=== PATIENT | male | born 1945 | race Caucasian/White ===

== ENCOUNTER 2018-03-08 11:37 | Emergency (ER) | payer MEDICARE, MEDICAID ==
[~2018-03-08] VITALS: Ht 180.3 cm; Wt 66.0 kg
[~2018-03-08 11:37] MED LIST: GABA-530 PO; GABA-532 PO; HYDR-565 PO; LISI-604 PO; ONDA4TAB6 PO; WARF3TAB PO
[2018-03-08 12:07] VITALS: BP 142/91
[2018-03-08 12:51] LABS: BASOPHILS % (AUTO) 0.6 % (0-1); EOSINOPHILS # (AUTO) 0.1 X10'3 (0-0.9); EOSINOPHILS % (AUTO) 1.7 % (0-6); HEMATOCRIT 46.1 % (42.0-52.0); HEMOGLOBIN 15.5 g/dl (14.0-17.9); LYMPHOCYTES # (AUTO) 1.9 X10'3 (1.1-4.8); MEAN CORPUSCULAR HEMOGLOBIN 29.7 PG (27.0-31.0); MEAN CORPUSCULAR HGB CONC 33.6 % (33.0-36.5); MEAN CORPUSCULAR VOLUME 88.6 FL (78-98); MEAN PLATELET VOLUME 7.6 FL (7.4-10.4); MONOCYTES # (AUTO) 0.5 X10'3 (0-0.9); MONOCYTES % (AUTO) 7.8 % (2-12); NEUTROPHILS # (AUTO) 3.9 X10'3 (1.8-7.7); NEUTROPHILS % (AUTO) 59.9 % (42-75); PLATELET COUNT 247 X10'3 (140-440); RED CELL DISTRIBUTION WIDTH 14.5 % (11.5-14.5); WHITE BLOOD COUNT 6.5 X10'3 (4.5-11.0)
[2018-03-08 13:10] LABS: ALANINE AMINOTRANSFERASE 22 U/L (12-78); ALBUMIN 3.7 G/DL (3.4-5.0); ALBUMIN/GLOBULIN RATIO 0.8 (1.1-1.5); ALKALINE PHOSPHATASE 94 IU/L (46-116); ANION GAP 9 (8-16); ASPARTATE AMINO TRANSFERASE 23 U/L (10-37); BILIRUBIN,TOTAL 0.5 MG/DL (0.1-1.0); BLOOD UREA NITROGEN 10 MG/DL (7-18); BUN/CREATININE RATIO 9.4 (5.4-32.0); CALCIUM 9.2 MG/DL (8.5-10.1); CHLORIDE 105 MMOL/L (99-107); CREATININE 1.06 MG/DL (0.60-1.10); GLUCOSE 97 MG/DL (70-104); MAGNESIUM 2.1 MG/DL (1.5-2.4); POTASSIUM 4.2 MMOL/L (3.5-5.1); SODIUM 142 MMOL/L (135-145); TOTAL CARBON DIOXIDE 27.9 MMOL/L (24-32); TOTAL PROTEIN 8.1 G/DL (6.4-8.2); eGFR 69 ML/MIN
[2018-03-08] MEDS ORDERED: IBUP-1985 PO (13:21)
== END 2018-03-08 13:33 | disposition home or self-care (01) ==
LOC: ER 11:37
DX: M79.605 Pain in left leg (principal); M79.604 Pain in right leg; I48.91 Unspecified atrial fibrillation; I10 Essential (primary) hypertension; Z86.718 Personal history of other venous thrombosis and embolism; Z88.0 Allergy status to penicillin; Z56.0 Unemployment, unspecified; Z79.899 Other long term (current) drug therapy
CPT/HCPCS: 36415; 80053; 83735; 85025; 99284

== ENCOUNTER → 2018-05-22 | Emergency (ER) | payer MEDICARE, MEDICAID ==
[~2018-05-22] VITALS: Ht 180.3 cm; Wt 75.0 kg
[~2018-05-22] MED LIST changes: +IBUP-1985 PO
[2018-05-22 12:24] LABS: BASOPHILS % (AUTO) 0.8 % (0-1); EOSINOPHILS # (AUTO) 0.1 X10'3 (0-0.9); EOSINOPHILS % (AUTO) 1.3 % (0-6); HEMATOCRIT 45.4 % (42.0-52.0); HEMOGLOBIN 15.4 g/dl (14.0-17.9); LYMPHOCYTES # (AUTO) 1.7 X10'3 (1.1-4.8); LYMPHOCYTES % (AUTO) 31.2 % (21-51); MEAN CORPUSCULAR HGB CONC 33.8 % (33.0-36.5); MEAN CORPUSCULAR VOLUME 88.9 FL (78-98); MEAN PLATELET VOLUME 8.7 FL (7.4-10.4); MONOCYTES # (AUTO) 0.5 X10'3 (0-0.9); MONOCYTES % (AUTO) 8.3 % (2-12); NEUTROPHILS # (AUTO) 3.3 X10'3 (1.8-7.7); NEUTROPHILS % (AUTO) 58.4 % (42-75); PLATELET COUNT 198 X10'3 (140-440); RED BLOOD COUNT 5.11 X10'6 (4.70-6.10); RED CELL DISTRIBUTION WIDTH 14.2 % (11.5-14.5); WHITE BLOOD COUNT 5.6 X10'3 (4.5-11.0)
[2018-05-22 12:27] LABS: INR 1.1 INR; PROTHROMBIN TIME 11.3 SECONDS (9.0-12.0)
[2018-05-22 12:35] LABS: ALANINE AMINOTRANSFERASE 14 U/L (12-78); ALBUMIN 3.4 G/DL (3.4-5.0); ALBUMIN/GLOBULIN RATIO 0.9 (1.1-1.5); ALKALINE PHOSPHATASE 76 IU/L (46-116); ANION GAP 9 (8-16); ASPARTATE AMINO TRANSFERASE 15 U/L (10-37); BILIRUBIN,TOTAL 0.6 MG/DL (0.1-1.0); BLOOD UREA NITROGEN 10 MG/DL (7-18); BUN/CREATININE RATIO 7.8 (5.4-32.0); CALCIUM 9.7 MG/DL (8.5-10.1); CHLORIDE 107 MMOL/L (99-107); CREATININE 1.29 MG/DL (0.60-1.10); GLUCOSE 98 MG/DL (70-104); SODIUM 146 MMOL/L (135-145); TOTAL CARBON DIOXIDE 30.4 MMOL/L (24-32); eGFR 55 ML/MIN
[2018-05-22 13:22] LABS: CLARITY,URINE SLIGHTLY CLOUDY (Clear); GLUCOSE, URINE NEGATIVE (Neg); KETONES,URINE TRACE mg/dl (Neg); LEUKOCYTE ESTERASE ,URINE NEGATIVE (Neg); NITRITES, URINE NEGATIVE (Neg); OCCULT BLOOD,URINE NEGATIVE (Neg); PROTEIN,URINE TRACE mg/dl (Neg)
[2018-05-22 13:23] LABS: UA COLLECTION TYPE URINAL
[2018-05-22 13:24] LABS: COLOR,URINE DARK YELLOW (Yellow)
[2018-05-22 13:29] LABS: BACTERIA,URINE FEW /HPF (Neg); MUCUS STRANDS MANY /LPF (Neg); RBC,URINE 0-2 /HPF (0-2); SQUAMOUS EPITHELIAL CELL,UR FEW /LPF (FEW); TRANSITIONAL EPI CELLS,URINE FEW /HPF
[2018-05-22 14:18] VITALS: BP 164/60
== END | disposition home or self-care (01) ==
LOC: ER 11:48
DX: R11.2 Nausea with vomiting, unspecified (principal); R53.1 Weakness; I48.91 Unspecified atrial fibrillation; I10 Essential (primary) hypertension; Z86.718 Personal history of other venous thrombosis and embolism; Z56.0 Unemployment, unspecified; Z88.0 Allergy status to penicillin; Z79.01 Long term (current) use of anticoagulants; Z79.899 Other long term (current) drug therapy
CPT/HCPCS: 36415; 71045; 80053; 81001; 83735; 83880; 84484; 85025; 85610; 87088; 93005; 99285

== ENCOUNTER 2018-07-27 19:04 | Emergency (ER) | payer MEDICARE, MEDICAID ==
[~2018-07-27] VITALS: Ht 180.3 cm; Wt 61.6 kg
[2018-07-27] MEDS ORDERED: ondansetron/PF 4mg/2ml inj IV ONE (21:10)
[2018-07-27] MEDS ORDERED: normal saline 1000ML IV soln IVB ONE (21:10)
[2018-07-27 21:28] VITALS: BP 146/85
[2018-07-27 21:41] LABS: BASOPHILS # (AUTO) 0.1 X10'3 (0-0.2); BASOPHILS % (AUTO) 0.8 % (0-1); EOSINOPHILS # (AUTO) 0.3 X10'3 (0-0.9); EOSINOPHILS % (AUTO) 4.3 % (0-6); HEMATOCRIT 42.8 % (42.0-52.0); HEMOGLOBIN 14.3 g/dl (14.0-17.9); LYMPHOCYTES # (AUTO) 2.6 X10'3 (1.1-4.8); LYMPHOCYTES % (AUTO) 40.3 % (21-51); MEAN CORPUSCULAR HEMOGLOBIN 29.4 PG (27.0-31.0); MEAN CORPUSCULAR HGB CONC 33.3 % (33.0-36.5); MEAN CORPUSCULAR VOLUME 88.4 FL (78-98); MEAN PLATELET VOLUME 7.7 FL (7.4-10.4); MONOCYTES # (AUTO) 0.7 X10'3 (0-0.9); MONOCYTES % (AUTO) 10.5 % (2-12); NEUTROPHILS # (AUTO) 2.9 X10'3 (1.8-7.7); NEUTROPHILS % (AUTO) 44.1 % (42-75); PLATELET COUNT 194 X10'3 (140-440); RED BLOOD COUNT 4.85 X10'6 (4.70-6.10); RED CELL DISTRIBUTION WIDTH 14.8 % (11.5-14.5); WHITE BLOOD COUNT 6.5 X10'3 (4.5-11.0)
[2018-07-27 21:56] LABS: ALANINE AMINOTRANSFERASE 15 U/L (12-78); ALBUMIN 3.1 G/DL (3.4-5.0); ALBUMIN/GLOBULIN RATIO 0.9 (1.1-1.5); ALKALINE PHOSPHATASE 75 IU/L (46-116); ANION GAP 7 (8-16); ASPARTATE AMINO TRANSFERASE 23 U/L (10-37); BILIRUBIN,TOTAL 0.4 MG/DL (0.1-1.0); BLOOD UREA NITROGEN 7 MG/DL (7-18); BUN/CREATININE RATIO 7.4 (5.4-32.0); CALCIUM 8.8 MG/DL (8.5-10.1); CHLORIDE 104 MMOL/L (99-107); CREATININE 0.95 MG/DL (0.60-1.10); GLUCOSE 88 MG/DL (70-104); LIPASE 170 U/L (73-393); POTASSIUM 3.6 MMOL/L (3.5-5.1); SODIUM 141 MMOL/L (135-145); TOTAL CARBON DIOXIDE 30.4 MMOL/L (24-32); TOTAL PROTEIN 6.6 G/DL (6.4-8.2); eGFR 78 ML/MIN
[2018-07-27] MEDS ORDERED: ONDA8TAB9 PO (22:49)
[2018-07-27 22:52] LABS: CLARITY,URINE CLEAR (Clear); COLOR,URINE YELLOW (Yellow); GLUCOSE, URINE NEGATIVE (Neg); KETONES,URINE NEGATIVE (Neg); LEUKOCYTE ESTERASE ,URINE NEGATIVE (Neg); NITRITES, URINE NEGATIVE (Neg); OCCULT BLOOD,URINE NEGATIVE (Neg); PH,URINE 6.5 (4.8-8.0); PROTEIN,URINE NEGATIVE (Neg); UROBILINOGEN,URINE 0.2 E.U/dL (0.2-1.0)
[2018-07-27 23:01] LABS: UA COLLECTION TYPE VOIDED
== END 2018-07-27 23:03 | disposition home or self-care (01) ==
LOC: ER 19:04
DX: R11.2 Nausea with vomiting, unspecified (principal); I48.91 Unspecified atrial fibrillation; I10 Essential (primary) hypertension; F17.200 Nicotine dependence, unspecified, uncomplicated; Z86.718 Personal history of other venous thrombosis and embolism; Z88.0 Allergy status to penicillin; Z79.01 Long term (current) use of anticoagulants
CPT/HCPCS: 36415; 80053; 81003; 83690; 85025; 96361; 96374; 99284; J2405; J7030

== ENCOUNTER 2018-07-29 18:02 | Emergency (ER) | payer MEDICARE, MEDICAID ==
[~2018-07-29] VITALS: Ht 180.3 cm; Wt 70.0 kg
[~2018-07-29 18:02] MED LIST changes: +ONDA8TAB9 PO
[2018-07-29 18:28] LABS: BASOPHILS % (AUTO) 0.6 % (0-1); EOSINOPHILS # (AUTO) 0.2 X10'3 (0-0.9); HEMATOCRIT 40.6 % (42.0-52.0); HEMOGLOBIN 13.5 g/dl (14.0-17.9); LYMPHOCYTES # (AUTO) 2.4 X10'3 (1.1-4.8); LYMPHOCYTES % (AUTO) 39.8 % (21-51); MEAN CORPUSCULAR HEMOGLOBIN 29.3 PG (27.0-31.0); MEAN CORPUSCULAR HGB CONC 33.3 % (33.0-36.5); MEAN PLATELET VOLUME 7.8 FL (7.4-10.4); MONOCYTES # (AUTO) 0.6 X10'3 (0-0.9); MONOCYTES % (AUTO) 9.2 % (2-12); NEUTROPHILS # (AUTO) 2.8 X10'3 (1.8-7.7); NEUTROPHILS % (AUTO) 46.4 % (42-75); PLATELET COUNT 189 X10'3 (140-440); RED BLOOD COUNT 4.61 X10'6 (4.70-6.10); RED CELL DISTRIBUTION WIDTH 14.8 % (11.5-14.5)
[2018-07-29 18:39] LABS: PROTHROMBIN TIME 10.7 SECONDS (9.0-12.0)
[2018-07-29 18:43] LABS: ALANINE AMINOTRANSFERASE 13 U/L (12-78); ALBUMIN 3.1 G/DL (3.4-5.0); ALBUMIN/GLOBULIN RATIO 0.9 (1.1-1.5); ALKALINE PHOSPHATASE 75 IU/L (46-116); ANION GAP 5 (8-16); ASPARTATE AMINO TRANSFERASE 20 U/L (10-37); BILIRUBIN,TOTAL 0.5 MG/DL (0.1-1.0); BLOOD UREA NITROGEN 7 MG/DL (7-18); BUN/CREATININE RATIO 7.8 (5.4-32.0); CALCIUM 8.5 MG/DL (8.5-10.1); CHLORIDE 105 MMOL/L (99-107); GLUCOSE 86 MG/DL (70-104); POTASSIUM 3.7 MMOL/L (3.5-5.1); SODIUM 140 MMOL/L (135-145); TOTAL PROTEIN 6.5 G/DL (6.4-8.2); eGFR 83 ML/MIN
[2018-07-29 18:53] LABS: CLARITY,URINE CLEAR (Clear); COLOR,URINE YELLOW (Yellow); GLUCOSE, URINE NEGATIVE (Neg); KETONES,URINE NEGATIVE (Neg); LEUKOCYTE ESTERASE ,URINE NEGATIVE (Neg); NITRITES, URINE NEGATIVE (Neg); OCCULT BLOOD,URINE NEGATIVE (Neg); PH,URINE 6.5 (4.8-8.0); PROTEIN,URINE NEGATIVE (Neg)
[2018-07-29 18:59] LABS: UA COLLECTION TYPE CLN CATCH MIDSTREAM
[2018-07-29 20:44] VITALS: BP 174/87
== END 2018-07-29 20:47 | disposition home or self-care (01) ==
LOC: ER 18:03
DX: R11.2 Nausea with vomiting, unspecified (principal); R42 Dizziness and giddiness; I10 Essential (primary) hypertension; I48.91 Unspecified atrial fibrillation; Z86.718 Personal history of other venous thrombosis and embolism; Z88.0 Allergy status to penicillin; Z79.01 Long term (current) use of anticoagulants; Z79.899 Other long term (current) drug therapy; Z56.0 Unemployment, unspecified
CPT/HCPCS: 36415; 80053; 81003; 85025; 85610; 93005; 99285

== ENCOUNTER 2018-08-31 18:21 | Emergency (ER) | payer MEDICARE, MEDICAID ==
[~2018-08-31] VITALS: Ht 180.3 cm; Wt 63.0 kg
[~2018-08-31 18:21] MED LIST changes: +HYDR-4353 PO; -HYDR-565 PO
[2018-08-31 20:23] VITALS: BP 165/89
== END 2018-08-31 20:15 | disposition home or self-care (01) ==
LOC: ER 18:21
DX: K59.00 Constipation, unspecified (principal); I10 Essential (primary) hypertension; I48.91 Unspecified atrial fibrillation; F17.200 Nicotine dependence, unspecified, uncomplicated; Z56.0 Unemployment, unspecified; Z88.0 Allergy status to penicillin; Z86.718 Personal history of other venous thrombosis and embolism; Z79.899 Other long term (current) drug therapy; Z79.01 Long term (current) use of anticoagulants
CPT/HCPCS: 99283

== ENCOUNTER 2018-09-12 16:54 | Emergency (ER) | payer MEDICARE, MEDICAID ==
[~2018-09-12] VITALS: Ht 180.3 cm; Wt 77.0 kg
[2018-09-12 16:57] VITALS: BP 171/81
== END 2018-09-12 17:34 | disposition home or self-care (01) ==
LOC: ER 16:55
DX: R11.2 Nausea with vomiting, unspecified (principal); I48.91 Unspecified atrial fibrillation; I10 Essential (primary) hypertension; Z56.0 Unemployment, unspecified; Z86.718 Personal history of other venous thrombosis and embolism; Z88.0 Allergy status to penicillin; Z79.899 Other long term (current) drug therapy; Z79.01 Long term (current) use of anticoagulants
CPT/HCPCS: 99283

== ENCOUNTER 2018-09-23 14:40 | Emergency (ER) | payer MEDICARE, MEDICAID ==
[~2018-09-23] VITALS: Ht 177.8 cm; Wt 62.7 kg
[2018-09-23 14:48] VITALS: BP 158/90
[2018-09-23 15:34] LABS: BASOPHILS % (AUTO) 0.5 % (0-1); EOSINOPHILS # (AUTO) 0.3 X10'3 (0-0.9); EOSINOPHILS % (AUTO) 4.2 % (0-6); HEMATOCRIT 44.2 % (42.0-52.0); HEMOGLOBIN 14.6 g/dl (14.0-17.9); LYMPHOCYTES # (AUTO) 2.5 X10'3 (1.1-4.8); LYMPHOCYTES % (AUTO) 34.8 % (21-51); MEAN CORPUSCULAR HEMOGLOBIN 29.2 PG (27.0-31.0); MEAN CORPUSCULAR VOLUME 88.8 FL (78-98); MEAN PLATELET VOLUME 7.9 FL (7.4-10.4); MONOCYTES # (AUTO) 0.6 X10'3 (0-0.9); MONOCYTES % (AUTO) 8.7 % (2-12); NEUTROPHILS # (AUTO) 3.7 X10'3 (1.8-7.7); NEUTROPHILS % (AUTO) 51.8 % (42-75); PLATELET COUNT 248 X10'3 (140-440); RED BLOOD COUNT 4.98 X10'6 (4.70-6.10); RED CELL DISTRIBUTION WIDTH 14.5 % (11.5-14.5); WHITE BLOOD COUNT 7.2 X10'3 (4.5-11.0)
[2018-09-23 15:41] LABS: ANION GAP 6 (8-16); BLOOD UREA NITROGEN 12 MG/DL (7-18); CHLORIDE 103 MMOL/L (99-107); GLUCOSE 92 MG/DL (70-104); POTASSIUM 3.6 MMOL/L (3.5-5.1); SODIUM 140 MMOL/L (135-145); TOTAL CARBON DIOXIDE 31.5 MMOL/L (24-32)
[2018-09-23 15:42] LABS: ALANINE AMINOTRANSFERASE 13 U/L (12-78); ALBUMIN 3.4 G/DL (3.4-5.0); ALBUMIN/GLOBULIN RATIO 0.9 (1.1-1.5); ALKALINE PHOSPHATASE 91 IU/L (46-116); ASPARTATE AMINO TRANSFERASE 14 U/L (10-37); BILIRUBIN,TOTAL 0.3 MG/DL (0.1-1.0); CALCIUM 9.7 MG/DL (8.5-10.1); TOTAL PROTEIN 7.2 G/DL (6.4-8.2); eGFR 73 ML/MIN
[2018-09-23 15:44] LABS: PROTHROMBIN TIME 10.2 SECONDS (9.0-12.0)
[2018-09-23 15:51] LABS: MAGNESIUM 1.9 MG/DL (1.5-2.4)
[2018-09-23] MEDS ORDERED: iohexol 350MG/ML 100ml bottle IV ONE (16:09)
== END 2018-09-23 16:36 | disposition home or self-care (01) ==
LOC: ER 14:41
DX: R00.2 Palpitations (principal); I48.91 Unspecified atrial fibrillation; I10 Essential (primary) hypertension; Z86.718 Personal history of other venous thrombosis and embolism; Z88.0 Allergy status to penicillin; Z79.01 Long term (current) use of anticoagulants; Z79.899 Other long term (current) drug therapy; Z56.0 Unemployment, unspecified
CPT/HCPCS: 36415; 71045; 80053; 83735; 83880; 84439; 84443; 84484; 85025; 85610; 93005; 99285; Q9967

== ENCOUNTER 2018-10-28 11:40 | Inpatient (IN) | payer MEDICARE, MEDICAID ==
[~2018-10-28] VITALS: Ht 180.3 cm; Wt 63.0 kg
[2018-10-28] MEDS ORDERED: normal saline 1000ML IV soln IVB ONE (12:15)
[2018-10-28 12:44] LABS: BASOPHILS # (AUTO) 0.1 X10'3 (0-0.2); BASOPHILS % (AUTO) 0.9 % (0-1); EOSINOPHILS # (AUTO) 0.2 X10'3 (0-0.9); EOSINOPHILS % (AUTO) 2.3 % (0-6); HEMATOCRIT 44.7 % (42.0-52.0); HEMOGLOBIN 14.8 g/dl (14.0-17.9); LYMPHOCYTES # (AUTO) 1.4 X10'3 (1.1-4.8); LYMPHOCYTES % (AUTO) 17.1 % (21-51); MEAN CORPUSCULAR HEMOGLOBIN 29.3 PG (27.0-31.0); MEAN CORPUSCULAR VOLUME 88.7 FL (78-98); MEAN PLATELET VOLUME 8.3 FL (7.4-10.4); MONOCYTES # (AUTO) 0.4 X10'3 (0-0.9); MONOCYTES % (AUTO) 5.3 % (2-12); NEUTROPHILS # (AUTO) 6.1 X10'3 (1.8-7.7); NEUTROPHILS % (AUTO) 74.4 % (42-75); PLATELET COUNT 311 X10'3 (140-440); RED BLOOD COUNT 5.04 X10'6 (4.70-6.10); RED CELL DISTRIBUTION WIDTH 14.2 % (11.5-14.5); WHITE BLOOD COUNT 8.3 X10'3 (4.5-11.0)
[2018-10-28 13:08] LABS: ALANINE AMINOTRANSFERASE 19 U/L (12-78); ALBUMIN 3.6 G/DL (3.4-5.0); ALBUMIN/GLOBULIN RATIO 0.9 (1.1-1.5); ALKALINE PHOSPHATASE 76 IU/L (46-116); ANION GAP 9 (8-16); ASPARTATE AMINO TRANSFERASE 26 U/L (10-37); BILIRUBIN,TOTAL 0.5 MG/DL (0.1-1.0); BLOOD UREA NITROGEN 18 MG/DL (7-18); BUN/CREATININE RATIO 14.6 (5.4-32.0); CALCIUM 9.9 MG/DL (8.5-10.1); CHLORIDE 105 MMOL/L (99-107); CREATININE 1.23 MG/DL (0.60-1.10); GLUCOSE 127 MG/DL (70-104); POTASSIUM 4.2 MMOL/L (3.5-5.1); SODIUM 143 MMOL/L (135-145); TOTAL CARBON DIOXIDE 29.1 MMOL/L (24-32); TOTAL PROTEIN 7.5 G/DL (6.4-8.2); eGFR 58 ML/MIN
[2018-10-28 14:11] LABS: CLARITY,URINE CLEAR (Clear); COLOR,URINE YELLOW (Yellow); GLUCOSE, URINE NEGATIVE (Neg); KETONES,URINE NEGATIVE (Neg); LEUKOCYTE ESTERASE ,URINE NEGATIVE (Neg); NITRITES, URINE NEGATIVE (Neg); OCCULT BLOOD,URINE SMALL (Neg); PROTEIN,URINE NEGATIVE (Neg); UROBILINOGEN,URINE 0.2 E.U/dL (0.2-1.0)
[2018-10-28 14:18] LABS: UA COLLECTION TYPE STRAIGHT CATH
[2018-10-28 14:21] LABS: SQUAMOUS EPITHELIAL CELL,UR FEW /LPF (FEW)
[2018-10-28 14:22] LABS: BACTERIA,URINE 1+ /HPF (Neg); WBC,URINE 0-4 /HPF (0-4)
[2018-10-28] MEDS ORDERED: ondansetron/PF 4mg/2ml inj IV PRN (15:00)
--- NOTE | 2018-10-28 15:12 | NUR ---
Rec'd call from ER asking for advice regarding this patient. Per Dr. Harrison he tells me that the pt's caregiver is very frustrated w/ the pt, he is continually non compliant w/ his meds, care, etc. She has been the caregiver for the last [address] Harrison he does not feel pt has any criteria for admit so is wondering what to tell the caregiver. Explained that pt cannot be evaluated for increased IHSS hours while here, this needs to be done w/ the pt home. Caregiver can call for re-eval. Also she should call APS and open a case on the pt if she feels he truly cannot live by himself any longer. Pt is refusing everything that doesn't involve him staying in his home. Explained to that this is a social issue not a medical one so admit would not be appropriate. Asked that he call me back if there's anything I can do for him. Continue to monitor.
[2018-10-28] MEDS: normal saline 1000ml 1,000 ML IV SCH (17:51)
[2018-10-28] MEDS ORDERED: METO-467 PO (19:43)
[2018-10-28] MEDS ORDERED: APIX5TAB3 PO (19:44)
[2018-10-28] MEDS ORDERED: ATOR20TA66 PO (19:48)
[2018-10-28] MEDS ORDERED: BUSP10TA3 PO (19:48)
[2018-10-28] MEDS ORDERED: TRAZ-218 PO (19:48)
[2018-10-28 19:50] VITALS: BP 116/65
--- NOTE | 2018-10-28 19:50 | NUR ---
PATIENT ADMITTED TO ROOM 347B FROM ER FOR FUNCTIONAL DECLINE AND DEMENTIA. PLACED COMFORTABLE IN BED. VITAL SIGNS TAKEN AND RECORDED.
[2018-10-28] MEDS: traZODone 50mg tablet PO SCH (22:29)
[2018-10-29] VITALS: BP 102/55
[2018-10-29 05:21] LABS: BASOPHILS % (AUTO) 0.5 % (0-1); EOSINOPHILS # (AUTO) 0.3 X10'3 (0-0.9); EOSINOPHILS % (AUTO) 5.5 % (0-6); HEMATOCRIT 36.8 % (42.0-52.0); HEMOGLOBIN 12.1 g/dl (14.0-17.9); LYMPHOCYTES # (AUTO) 1.9 X10'3 (1.1-4.8); LYMPHOCYTES % (AUTO) 31.8 % (21-51); MEAN CORPUSCULAR HEMOGLOBIN 29.1 PG (27.0-31.0); MEAN CORPUSCULAR VOLUME 88.3 FL (78-98); MEAN PLATELET VOLUME 8.3 FL (7.4-10.4); MONOCYTES # (AUTO) 0.6 X10'3 (0-0.9); MONOCYTES % (AUTO) 9.9 % (2-12); NEUTROPHILS # (AUTO) 3.1 X10'3 (1.8-7.7); NEUTROPHILS % (AUTO) 52.3 % (42-75); PLATELET COUNT 233 X10'3 (140-440); RED BLOOD COUNT 4.16 X10'6 (4.70-6.10); RED CELL DISTRIBUTION WIDTH 14.5 % (11.5-14.5); WHITE BLOOD COUNT 5.9 X10'3 (4.5-11.0)
[2018-10-29 05:44] LABS: ALBUMIN 2.7 G/DL (3.4-5.0); ANION GAP 9 (8-16); BLOOD UREA NITROGEN 15 MG/DL (7-18); BUN/CREATININE RATIO 15.6 (5.4-32.0); CALCIUM 8.6 MG/DL (8.5-10.1); CHLORIDE 109 MMOL/L (99-107); CREATININE 0.96 MG/DL (0.60-1.10); GLUCOSE 90 MG/DL (70-104); POTASSIUM 3.5 MMOL/L (3.5-5.1); SODIUM 143 MMOL/L (135-145); eGFR 77 ML/MIN
--- NOTE | 2018-10-29 06:30 | NUR ---
Problems reprioritized. Patient report given, questions answered & plan of care reviewed with VICTORINO RN.
--- NOTE | 2018-10-29 06:30 | NUR ---
Patient in room BAN 347. I have received report from Camryn Cowan RN and had the opportunity to ask questions and assume patient care.
[2018-10-29 07:32] VITALS: BP 117/58
[2018-10-29] MEDS: metoprolol tartrate 50mg tablet PO SCH ×2 (08:00→19:55)
[2018-10-29] MEDS: busPIRone 5mg tablet PO SCH ×2 (09:54→19:52)
[2018-10-29] MEDS: apixaban 5mg tablet PO SCH ×2 (09:55→19:52)
[2018-10-29] MEDS: atorvastatin 20mg tablet PO SCH (09:55)
[2018-10-29 11:23] VITALS: BP 119/59
--- NOTE | 2018-10-29 11:28 | NUR ---
Dr Minor pagejacob RE:HR=45, pt asymptomatic. HR this AM=49, metoprolol held.
[2018-10-29] MEDS: nystatin 15 GM powder TP SCH ×2 (12:59→19:55)
--- NOTE | 2018-10-29 15:18 | NUR ---
SS met w/pt today attempted to engage pt in completing a psychosocial, pt was alert, but not oriented, unable to participate in psychosocial assessment. Pt's also unable participate in the decision making process re his medical care @ this time also. SS consulted w/attending RN, and was informed that pt has no family, lives alone, has an IHSS worker who only provided 10-12 hours of services for pt/week. SS attempted to consult w/IHSS worker via phone, left vm requesting a rt p/c to discuss pt's needs and resources. SS will continue to monitor.
--- NOTE | 2018-10-29 15:49 | NUR ---
SS received p/c from pt's caregiver, engaged her in discussion to gather information pertaining to pt's functioning in the home. Per discussion, caregiver reports that she's been caring for the past 4 years. She notes that the first year pt had been independent w/his ADLs, was able to leave his home and go out to restaurants and other community venues. About 2 years ago, caregiver noticed that pt's become increasingly reclusive, resistive to any coaxing by caregiver to leave the house, and he began to neglect his hygeine care. Caregiver indicated that pt's memory issues worsened w/in this past year, pt would call caregiver out of the blue but could not recall why, when caregiver goes to his apartment to help him get ready to go to his doctor's appointments, pt would get dressed and would ask caregiver why he's dressed. SS also contacted [facility], where pt go to see his primary care physician. SS spoke w/Michelle, pt's RN @ [facility]. Per consultation, Michelle informed SS that since June 2018 pt's PMD has been noting mental decline, altered mental status, Dissociative/Conversion DX and pt also declined several attempts by his PMD to complete an ADR. Other noteworthy issues include anxiety and frequent falls. In addition, pt's PMD attempted to discuss options of assisted living, and LTC with pt but pt declined any referrals, since August 2018. SS consulted w/CM suggesting obtaining records from PMD as pt may require a referral to the [facility] office for conservatorship. SS & CM met w/client and asked for his consent so we can get medical records from PMD-pt's refused. SS will consult w/attending physician.
--- NOTE | 2018-10-29 18:20 | NUR ---
Problems reprioritized. Patient report given, questions answered & plan of care reviewed with MARCO A White.
--- NOTE | 2018-10-29 18:53 | NUR ---
Patient in room BAN 347. I have received report from Amy STRICKLAND and had the opportunity to ask questions and assume patient care. Pt is sitting up comfortably in bed with no signs of distress.
[2018-10-29] MEDS: traZODone 50mg tablet PO SCH (19:52)
[2018-10-29 20:00] VITALS: BP 96/54
[2018-10-30 00:42] VITALS: BP 98/65
[2018-10-30] MEDS ORDERED: normal saline 1000ml 1,000 ML IVB ONE (04:24)
[2018-10-30] MEDS ORDERED: morphine 2 MG/ML inj. syringe IV PRN (04:25)
--- NOTE | 2018-10-30 06:25 | NUR ---
Problems reprioritized. Patient report given, questions answered & plan of care reviewed with Amy STRICKLAND. Pt was sleeping with IV running NS @ 120. No current signs of distress.
--- NOTE | 2018-10-30 06:30 | NUR ---
Patient in room BAN 347. I have received report from MARCO A White and had the opportunity to ask questions and assume patient care.
[2018-10-30] MEDS: normal saline 1000ml 1,000 ML IV SCH ×3 (06:35→16:50)
[2018-10-30 07:41] VITALS: BP 133/84
[2018-10-30 07:46] LABS: BASOPHILS % (AUTO) 0.5 % (0-1); EOSINOPHILS # (AUTO) 0.3 X10'3 (0-0.9); EOSINOPHILS % (AUTO) 4.2 % (0-6); HEMATOCRIT 41.2 % (42.0-52.0); HEMOGLOBIN 13.6 g/dl (14.0-17.9); LYMPHOCYTES # (AUTO) 2.3 X10'3 (1.1-4.8); LYMPHOCYTES % (AUTO) 29.5 % (21-51); MEAN CORPUSCULAR HGB CONC 32.9 % (33.0-36.5); MEAN CORPUSCULAR VOLUME 88.4 FL (78-98); MEAN PLATELET VOLUME 8.7 FL (7.4-10.4); MONOCYTES # (AUTO) 0.5 X10'3 (0-0.9); MONOCYTES % (AUTO) 6.4 % (2-12); NEUTROPHILS # (AUTO) 4.6 X10'3 (1.8-7.7); NEUTROPHILS % (AUTO) 59.4 % (42-75); PLATELET COUNT 231 X10'3 (140-440); RED BLOOD COUNT 4.67 X10'6 (4.70-6.10); RED CELL DISTRIBUTION WIDTH 14.6 % (11.5-14.5); WHITE BLOOD COUNT 7.7 X10'3 (4.5-11.0)
[2018-10-30] MEDS: atorvastatin 20mg tablet PO SCH (07:51)
[2018-10-30] MEDS: apixaban 5mg tablet PO SCH ×2 (07:51→20:31)
[2018-10-30] MEDS: busPIRone 5mg tablet PO SCH ×2 (07:51→20:30)
[2018-10-30] MEDS: metoprolol tartrate 50mg tablet PO SCH (07:51)
[2018-10-30] MEDS: nystatin 15 GM powder TP SCH ×2 (07:52→20:00)
[2018-10-30 08:37] LABS: CLARITY,URINE CLOUDY (Clear); COLOR,URINE RED (Yellow); GLUCOSE, URINE NEGATIVE (Neg); KETONES,URINE NEGATIVE (Neg); LEUKOCYTE ESTERASE ,URINE SMALL (Neg); OCCULT BLOOD,URINE LARGE (Neg); PROTEIN,URINE TRACE mg/dl (Neg); UROBILINOGEN,URINE 0.2 E.U/dL (0.2-1.0)
[2018-10-30 08:38] LABS: ALBUMIN 2.6 G/DL (3.4-5.0); ANION GAP 6 (8-16); BLOOD UREA NITROGEN 14 MG/DL (7-18); BUN/CREATININE RATIO 12.7 (5.4-32.0); CALCIUM 7.9 MG/DL (8.5-10.1); CHLORIDE 108 MMOL/L (99-107); GLUCOSE 92 MG/DL (70-104); POTASSIUM 3.8 MMOL/L (3.5-5.1); SODIUM 141 MMOL/L (135-145); TOTAL CARBON DIOXIDE 26.6 MMOL/L (24-32); eGFR 66 ML/MIN
[2018-10-30 08:45] LABS: NITRITES, URINE NEGATIVE (Neg); UA COLLECTION TYPE NON-SPECIFIED
[2018-10-30 08:46] LABS: BACTERIA,URINE NONE SEEN /HPF (Neg); MUCUS STRANDS NONE SEEN /LPF (Neg); RBC,URINE TNTC /HPF (0-2); SQUAMOUS EPITHELIAL CELL,UR NONE SEEN /LPF (FEW)
[2018-10-30 11:45] VITALS: BP 99/61
--- NOTE | 2018-10-30 11:51 | NUR ---
Paged Dr Minor RE:HR=45, BP=99/61, asymptomatic. Administered metoprolol this AM. AM HR=72, ZY=266/84.
[2018-10-30] MEDS: donepezil 5mg tablet PO SCH (14:46)
--- NOTE | 2018-10-30 18:24 | NUR ---
Problems reprioritized. Patient report given, questions answered & plan of care reviewed with MARCO A Goode.
--- NOTE | 2018-10-30 18:25 | NUR ---
Patient in room BAN 347. I have received report from Amy Zelaya and had the opportunity to ask questions and assume patient care.
[2018-10-30 19:00] VITALS: BP 108/54
[2018-10-30] MEDS: metoprolol tartrate 25mg tablet PO SCH (20:00)
[2018-10-30] MEDS: traZODone 50mg tablet PO SCH (20:30)
[2018-10-31] VITALS: BP 121/62
[2018-10-31] MEDS: normal saline 1000ml 1,000 ML IV SCH ×3 (01:08→20:19)
[2018-10-31 05:06] LABS: BASOPHILS % (AUTO) 0.4 % (0-1); EOSINOPHILS # (AUTO) 0.4 X10'3 (0-0.9); EOSINOPHILS % (AUTO) 5.4 % (0-6); HEMATOCRIT 38.3 % (42.0-52.0); HEMOGLOBIN 12.6 g/dl (14.0-17.9); LYMPHOCYTES # (AUTO) 2.1 X10'3 (1.1-4.8); LYMPHOCYTES % (AUTO) 30.7 % (21-51); MEAN CORPUSCULAR HEMOGLOBIN 29.3 PG (27.0-31.0); MEAN CORPUSCULAR HGB CONC 32.9 % (33.0-36.5); MEAN CORPUSCULAR VOLUME 89.1 FL (78-98); MEAN PLATELET VOLUME 8.6 FL (7.4-10.4); MONOCYTES # (AUTO) 0.6 X10'3 (0-0.9); MONOCYTES % (AUTO) 8.6 % (2-12); NEUTROPHILS # (AUTO) 3.8 X10'3 (1.8-7.7); NEUTROPHILS % (AUTO) 54.9 % (42-75); PLATELET COUNT 214 X10'3 (140-440); RED CELL DISTRIBUTION WIDTH 14.2 % (11.5-14.5)
[2018-10-31 05:25] LABS: ALBUMIN 2.5 G/DL (3.4-5.0); ANION GAP 6 (8-16); BLOOD UREA NITROGEN 14 MG/DL (7-18); BUN/CREATININE RATIO 14.4 (5.4-32.0); CALCIUM 8.2 MG/DL (8.5-10.1); CHLORIDE 107 MMOL/L (99-107); CREATININE 0.97 MG/DL (0.60-1.10); GLUCOSE 95 MG/DL (70-104); POTASSIUM 4.5 MMOL/L (3.5-5.1); SODIUM 140 MMOL/L (135-145); TOTAL CARBON DIOXIDE 27.4 MMOL/L (24-32); eGFR 76 ML/MIN
--- NOTE | 2018-10-31 06:20 | NUR ---
Problems reprioritized. Patient report given, questions answered & plan of care reviewed with JOSELITO STRICKLAND.
[2018-10-31 07:50] VITALS: BP 158/76
[2018-10-31] MEDS: metoprolol tartrate 25mg tablet PO SCH ×2 (08:00→20:00)
[2018-10-31] MEDS: donepezil 5mg tablet PO SCH (08:20)
[2018-10-31] MEDS: busPIRone 5mg tablet PO SCH ×2 (08:20→20:19)
[2018-10-31] MEDS: apixaban 5mg tablet PO SCH ×2 (08:20→20:19)
[2018-10-31] MEDS: atorvastatin 20mg tablet PO SCH (08:20)
[2018-10-31] MEDS: CITALOpram 10mg tablet PO SCH (08:21)
[2018-10-31] MEDS: nystatin 15 GM powder TP SCH ×2 (08:21→20:19)
[2018-10-31 11:45] VITALS: BP 148/70
--- NOTE | 2018-10-31 13:51 | NUR ---
patient refusing any turns or repositions. educated on the importance of turning and skin integrity. will continue to attempt q2 turns.
--- NOTE | 2018-10-31 15:11 | NUR ---
patient refusing [id number]. asked to get up to toilet to have a BM. assessed back side, skin clear no reddened or open areas.
--- NOTE | 2018-10-31 16:11 | NUR ---
Patient in room BAN 347B. I have received report from MARCO A Goode and had the opportunity to ask questions and assume patient care. Addendum: 10/31/18 at 1612 by Anastasiia Alfaro RN CHARTED AT WRONG TIME. CORRECT TIME 0620
--- NOTE | 2018-10-31 18:13 | NUR ---
Problems reprioritized. Patient report given, questions answered & plan of care reviewed with MARCO A BURNETTE.
--- NOTE | 2018-10-31 18:14 | NUR ---
Patient in room BAN 347. I have received report from Anastasiia Zelaya and had the opportunity to ask questions and assume patient care.
[2018-10-31 19:00] VITALS: BP 144/73
[2018-10-31] MEDS: traZODone 50mg tablet PO SCH (20:23)
[2018-11-01 00:57] VITALS: BP 160/70
[2018-11-01] MEDS: normal saline 1000ml 1,000 ML IV SCH ×2 (04:47→13:31)
[2018-11-01 05:28] LABS: ALBUMIN 2.6 G/DL (3.4-5.0); ANION GAP 6 (8-16); BLOOD UREA NITROGEN 8 MG/DL (7-18); BUN/CREATININE RATIO 9.9 (5.4-32.0); CALCIUM 8.3 MG/DL (8.5-10.1); CHLORIDE 107 MMOL/L (99-107); CREATININE 0.81 MG/DL (0.60-1.10); GLUCOSE 98 MG/DL (70-104); POTASSIUM 3.8 MMOL/L (3.5-5.1); SODIUM 142 MMOL/L (135-145); TOTAL CARBON DIOXIDE 29.4 MMOL/L (24-32); eGFR > 90 ML/MIN
[2018-11-01 05:49] LABS: BASOPHILS % (AUTO) 0.4 % (0-1); EOSINOPHILS # (AUTO) 0.2 X10'3 (0-0.9); EOSINOPHILS % (AUTO) 2.5 % (0-6); HEMATOCRIT 41.2 % (42.0-52.0); HEMOGLOBIN 13.8 g/dl (14.0-17.9); LYMPHOCYTES # (AUTO) 1.9 X10'3 (1.1-4.8); LYMPHOCYTES % (AUTO) 26.9 % (21-51); MEAN CORPUSCULAR HEMOGLOBIN 29.4 PG (27.0-31.0); MEAN CORPUSCULAR HGB CONC 33.4 % (33.0-36.5); MEAN PLATELET VOLUME 8.9 FL (7.4-10.4); MONOCYTES # (AUTO) 0.5 X10'3 (0-0.9); MONOCYTES % (AUTO) 6.7 % (2-12); NEUTROPHILS # (AUTO) 4.5 X10'3 (1.8-7.7); NEUTROPHILS % (AUTO) 63.5 % (42-75); PLATELET COUNT 221 X10'3 (140-440); RED BLOOD COUNT 4.68 X10'6 (4.70-6.10); RED CELL DISTRIBUTION WIDTH 14.3 % (11.5-14.5)
--- NOTE | 2018-11-01 06:19 | NUR ---
Problems reprioritized. Patient report given, questions answered & plan of care reviewed with Edelmira Zelaya.
--- NOTE | 2018-11-01 06:26 | NUR ---
Patient in room BAN 347. I have received report from Russel STRICKLAND and had the opportunity to ask questions and assume patient care.
[2018-11-01] MEDS: apixaban 5mg tablet PO SCH ×2 (07:14→20:44)
[2018-11-01] MEDS: donepezil 5mg tablet PO SCH (07:14)
[2018-11-01] MEDS: CITALOpram 10mg tablet PO SCH (07:14)
[2018-11-01] MEDS: atorvastatin 20mg tablet PO SCH (07:14)
[2018-11-01] MEDS: busPIRone 5mg tablet PO SCH ×2 (07:14→20:44)
[2018-11-01] MEDS: metoprolol tartrate 25mg tablet PO SCH ×2 (07:14→20:00)
[2018-11-01] MEDS: nystatin 15 GM powder TP SCH ×2 (07:15→20:44)
[2018-11-01 07:49] VITALS: BP 139/71
[2018-11-01 11:24] VITALS: BP 108/62
--- NOTE | 2018-11-01 18:29 | NUR ---
Problems reprioritized. Patient report given, questions answered & plan of care reviewed with Nabila STRICKLAND.
--- NOTE | 2018-11-01 18:29 | NUR ---
Patient in room BAN 347. I have received report from Edelmira STRICKLAND and had the opportunity to ask questions and assume patient care. no signs of distress, resting. call light and belongings within reach, BLL, SR up x2. will continue to monitor.
[2018-11-01 20:30] VITALS: BP_SYST 122; BP_SYST 124; BP_DIAS 59
[2018-11-01] MEDS: traZODone 50mg tablet PO SCH (20:44)
[2018-11-01 23:30] VITALS: BP 142/79
[2018-11-02 05:04] LABS: BASOPHILS % (AUTO) 0.3 % (0-1); EOSINOPHILS # (AUTO) 0.3 X10'3 (0-0.9); EOSINOPHILS % (AUTO) 3.2 % (0-6); HEMATOCRIT 42.5 % (42.0-52.0); LYMPHOCYTES # (AUTO) 2.2 X10'3 (1.1-4.8); LYMPHOCYTES % (AUTO) 26.5 % (21-51); MEAN CORPUSCULAR VOLUME 87.8 FL (78-98); MEAN PLATELET VOLUME 8.3 FL (7.4-10.4); MONOCYTES # (AUTO) 0.6 X10'3 (0-0.9); MONOCYTES % (AUTO) 7.6 % (2-12); NEUTROPHILS # (AUTO) 5.1 X10'3 (1.8-7.7); NEUTROPHILS % (AUTO) 62.4 % (42-75); PLATELET COUNT 243 X10'3 (140-440); RED BLOOD COUNT 4.84 X10'6 (4.70-6.10); RED CELL DISTRIBUTION WIDTH 13.9 % (11.5-14.5); WHITE BLOOD COUNT 8.2 X10'3 (4.5-11.0)
[2018-11-02 05:27] LABS: ALBUMIN 2.5 G/DL (3.4-5.0); ANION GAP 7 (8-16); BLOOD UREA NITROGEN 9 MG/DL (7-18); BUN/CREATININE RATIO 10.1 (5.4-32.0); CALCIUM 8.5 MG/DL (8.5-10.1); CHLORIDE 106 MMOL/L (99-107); CREATININE 0.89 MG/DL (0.60-1.10); GLUCOSE 103 MG/DL (70-104); POTASSIUM 3.4 MMOL/L (3.5-5.1); SODIUM 141 MMOL/L (135-145); TOTAL CARBON DIOXIDE 28.1 MMOL/L (24-32); eGFR 84 ML/MIN
--- NOTE | 2018-11-02 06:11 | NUR ---
Problems reprioritized. Patient report given, questions answered & plan of care reviewed with Edelmira STRICKLAND.
--- NOTE | 2018-11-02 06:26 | NUR ---
Patient in room BAN 347. I have received report from Nabila STRICKLAND and had the opportunity to ask questions and assume patient care.
[2018-11-02] MEDS: busPIRone 5mg tablet PO SCH ×2 (07:24→20:14)
[2018-11-02] MEDS: donepezil 5mg tablet PO SCH (07:24)
[2018-11-02] MEDS: CITALOpram 10mg tablet PO SCH (07:25)
[2018-11-02] MEDS: metoprolol tartrate 25mg tablet PO SCH ×2 (07:25→20:00)
[2018-11-02] MEDS: apixaban 5mg tablet PO SCH ×2 (07:25→20:13)
[2018-11-02] MEDS: nystatin 15 GM powder TP SCH ×2 (08:00→20:14)
[2018-11-02 08:10] VITALS: BP 132/61
--- NOTE | 2018-11-02 08:37 | NUR ---
Paged Dr. Johns concerning K level of 3.4 and needing order to replace if wanted.
[2018-11-02] MEDS ORDERED: magnesium 4gm in 100ml NS 100 ML IV PRN (10:10)
[2018-11-02] MEDS ORDERED: potassium Cl 20 mEq SR tablet PO PRN ×2 (10:10)
[2018-11-02] MEDS ORDERED: magnesium Cl slow-release 64mg tablet PO PRN (10:10)
[2018-11-02] MEDS ORDERED: potassium Cl 40MEQ/NS 500ml 500 ML IV PRN ×2 (10:10)
[2018-11-02 11:22] VITALS: BP 105/61
[2018-11-02] MEDS: normal saline 1000ml 1,000 ML IV SCH (16:34)
--- NOTE | 2018-11-02 18:05 | NUR ---
Problems reprioritized. Patient report given, questions answered & plan of care reviewed with Nabila STRICKLAND.
--- NOTE | 2018-11-02 18:05 | NUR ---
Patient in room BAN 347. I have received report from Edelmira STRICKLAND and had the opportunity to ask questions and assume patient care.
[2018-11-02 20:00] VITALS: BP 94/44
[2018-11-02] MEDS: traZODone 50mg tablet PO SCH (20:14)
[2018-11-02] MEDS: atorvastatin 20mg tablet PO SCH (20:14)
[2018-11-02 20:16] VITALS: BP 97/49
[2018-11-02 23:30] VITALS: BP 104/62
--- NOTE | 2018-11-03 06:31 | NUR ---
Patient in room BAN 347. I have received report from Edelmira STRICKLAND and had the opportunity to ask questions and assume patient care. Addendum: 11/03/18 at 0632 by Nabila Wolf RN Problems reprioritized. Patient report given, questions answered & plan of care reviewed with Edelmira STRICKLAND.
--- NOTE | 2018-11-03 06:49 | NUR ---
Patient in room BAN 347. I have received report from Nabila STRICKLAND and had the opportunity to ask questions and assume patient care.
[2018-11-03 06:55] LABS: POTASSIUM 4.1 MMOL/L (3.5-5.1)
[2018-11-03] MEDS: CITALOpram 10mg tablet PO SCH (07:46)
[2018-11-03] MEDS: apixaban 5mg tablet PO SCH ×2 (07:46→20:05)
[2018-11-03] MEDS: donepezil 5mg tablet PO SCH (07:46)
[2018-11-03] MEDS: busPIRone 5mg tablet PO SCH ×2 (07:46→20:05)
[2018-11-03] MEDS: metoprolol tartrate 25mg tablet PO SCH ×2 (07:49→20:00)
[2018-11-03] MEDS: nystatin 15 GM powder TP SCH ×2 (07:50→20:04)
[2018-11-03 08:30] VITALS: BP 152/72
--- NOTE | 2018-11-03 10:09 | NUR ---
Initial: Pt brought in by caregiver for evaluation of gradual functional decline. Per H&P pt no longer independent to perform ADLs. Per physical assessment pt A/O x 2 and confused. Pt on regular diet with fluctuating PO intake mostly averaging 50-75% likely meeting nutrient needs. PO intake likely to fluctuate d/t patient w/dementia and function decline. Pt with BMI on the lower end of appropriate however appears stable with documented wt from previous visits. LBM 10/31. No edema or wounds. Pt awaiting placement per MD notes. Will continue to follow. Recommendations: 1) Continue with regular diet 2) Monitor need for ONS 3) Monitor need for additional bowel care 4) Wt per rx Addendum: 11/03/18 at [address] Amended: Links added.
[2018-11-03 11:05] VITALS: BP 107/69
[2018-11-03] MEDS: normal saline 1000ml 1,000 ML IV SCH (16:55)
--- NOTE | 2018-11-03 18:19 | NUR ---
Problems reprioritized. Patient report given, questions answered & plan of care reviewed with Nabila STRICKLAND.
--- NOTE | 2018-11-03 18:19 | NUR ---
Patient in room BAN 347. I have received report from Edelmira STRICKLAND and had the opportunity to ask questions and assume patient care.
[2018-11-03 20:00] VITALS: BP 124/62
[2018-11-03] MEDS: traZODone 50mg tablet PO SCH (20:05)
[2018-11-03] MEDS: atorvastatin 20mg tablet PO SCH (20:05)
[2018-11-04] VITALS: BP 165/85
[2018-11-04] MEDS: normal saline 1000ml 1,000 ML IV SCH (05:14)
--- NOTE | 2018-11-04 06:47 | NUR ---
Problems reprioritized. Patient report given, questions answered & plan of care reviewed with Maty STRICKLAND.
[2018-11-04 07:15] VITALS: BP 147/79
[2018-11-04] MEDS: metoprolol tartrate 25mg tablet PO SCH ×2 (08:00→20:00)
[2018-11-04] MEDS: apixaban 5mg tablet PO SCH ×2 (08:48→21:18)
[2018-11-04] MEDS: donepezil 5mg tablet PO SCH (08:48)
[2018-11-04] MEDS: nystatin 15 GM powder TP SCH ×2 (08:49→21:18)
[2018-11-04] MEDS: busPIRone 5mg tablet PO SCH ×2 (08:50→21:19)
[2018-11-04] MEDS: CITALOpram 10mg tablet PO SCH (08:53)
[2018-11-04 11:30] VITALS: BP 131/65
--- NOTE | 2018-11-04 18:30 | NUR ---
Patient in room BAN 347. I have received report from MARCO A Rutledge and had the opportunity to ask questions and assume patient care. Addendum: 11/04/18 at 1951 by Isabella Lal RN Amended: Links added.
[2018-11-04 19:58] VITALS: BP 100/59
[2018-11-04] MEDS: atorvastatin 20mg tablet PO SCH (21:19)
[2018-11-04] MEDS: traZODone 50mg tablet PO SCH (21:19)
[2018-11-05 00:30] VITALS: BP 126/62
[2018-11-05] MEDS: normal saline 1000ml 1,000 ML IV SCH (04:53)
--- NOTE | 2018-11-05 06:18 | NUR ---
Problems reprioritized. Patient report given, questions answered & plan of care reviewed with MARCO A Rutledge. Addendum: 11/05/18 at 0618 by Isabella Lal RN Amended: Links added.
[2018-11-05 07:13] VITALS: BP 140/73
[2018-11-05] MEDS: CITALOpram 10mg tablet PO SCH (08:23)
[2018-11-05] MEDS: busPIRone 5mg tablet PO SCH ×2 (08:23→20:10)
[2018-11-05] MEDS: metoprolol tartrate 25mg tablet PO SCH ×2 (08:24→20:00)
[2018-11-05] MEDS: apixaban 5mg tablet PO SCH ×2 (08:24→20:10)
[2018-11-05] MEDS: donepezil 5mg tablet PO SCH (08:24)
[2018-11-05] MEDS: nystatin 15 GM powder TP SCH ×2 (08:28→20:11)
--- NOTE | 2018-11-05 09:11 | NUR ---
SS spoke to caregiver via phone to engage caregiver in identifying the pros/cons of pt returning home. Per discussion caregiver reports that due to the decline of pt's functioning (physically & mentally) pt would require someone to be with him 16/06. SS asked caregiver if she would be able to do that for pt, caregiver said no as pt will not do things for himself (i.e. going to the bathroom, unless he is physically picked up and taken there), pt will not eat unless she is there and prompting him or spoon feed him, pt will wet & soils himself so the laundry task is daily, bathing is also a challenge as he resists. SS will continue to monitor.
[2018-11-05 20:08] VITALS: BP 105/56
[2018-11-05] MEDS: traZODone 50mg tablet PO SCH (20:10)
[2018-11-05] MEDS: atorvastatin 20mg tablet PO SCH (20:10)
--- NOTE | 2018-11-05 20:19 | NUR ---
jaiden care done, nystatin powder and calazime barrier cream applied Addendum: 11/05/18 at 2020 by Isabella Lal RN Amended: Links added.
[2018-11-06 00:30] VITALS: BP 115/58
[2018-11-06] MEDS: acetaminophen 325mg tablet PO PRN (03:44)
[2018-11-06] MEDS: normal saline 1000ml 1,000 ML IV SCH (04:57)
--- NOTE | 2018-11-06 06:14 | NUR ---
Problems reprioritized. Patient report given, questions answered & plan of care reviewed with MARCO A Rutledge. Addendum: 11/06/18 at 0614 by Isabella Lal RN Amended: Links added.
[2018-11-06 07:26] VITALS: BP 137/74
[2018-11-06] MEDS: metoprolol tartrate 25mg tablet PO SCH ×2 (08:00→20:00)
[2018-11-06] MEDS: nystatin 15 GM powder TP SCH ×2 (08:00→20:00)
[2018-11-06] MEDS: donepezil 5mg tablet PO SCH (08:54)
[2018-11-06] MEDS: CITALOpram 10mg tablet PO SCH (08:54)
[2018-11-06] MEDS: apixaban 5mg tablet PO SCH ×2 (08:54→21:11)
[2018-11-06] MEDS: busPIRone 5mg tablet PO SCH ×2 (08:54→21:10)
[2018-11-06 12:00] VITALS: BP 133/68
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
[2018-11-06 18:00] VITALS: BP 112/53
--- NOTE | 2018-11-06 19:02 | NUR ---
Patient in room BAN 347. I have received report from Maty STRICKLAND and had the opportunity to ask questions and assume patient care.
[2018-11-06] MEDS: traZODone 50mg tablet PO SCH (21:10)
[2018-11-06] MEDS: atorvastatin 20mg tablet PO SCH (21:10)
[2018-11-07] VITALS: BP 106/57
--- NOTE | 2018-11-07 06:30 | NUR ---
Patient in room BAN 347. I have received report from JOSE STRICKLAND and had the opportunity to ask questions and assume patient care.
--- NOTE | 2018-11-07 06:41 | NUR ---
Problems reprioritized. Patient report given, questions answered & plan of care reviewed with Katie STRICKLAND. Pt sleeping comfortably,no signs of distress.
[2018-11-07 07:00] VITALS: BP 133/61
[2018-11-07] MEDS: metoprolol tartrate 25mg tablet PO SCH ×2 (07:16→20:00)
[2018-11-07] MEDS: busPIRone 5mg tablet PO SCH ×2 (07:41→20:03)
[2018-11-07] MEDS: acetaminophen 325mg tablet PO PRN (07:41)
[2018-11-07] MEDS: CITALOpram 10mg tablet PO SCH (07:41)
[2018-11-07] MEDS: donepezil 5mg tablet PO SCH (07:41)
[2018-11-07] MEDS: apixaban 5mg tablet PO SCH ×2 (07:41→20:04)
[2018-11-07] MEDS: nystatin 15 GM powder TP SCH ×2 (08:35→20:04)
[2018-11-07 12:00] VITALS: BP 151/71
[2018-11-07 18:00] VITALS: BP 130/64
--- NOTE | 2018-11-07 18:09 | NUR ---
Problems reprioritized. Patient report given, questions answered & plan of care reviewed with JOSE STRICKLAND.
--- NOTE | 2018-11-07 18:39 | NUR ---
Patient in room BAN 347. I have received report from Katie STRICKLAND and had the opportunity to ask questions and assume patient care. Pt sitting up in bed waiting for dinner. No signs of distress, will continue to monitor.
[2018-11-07] MEDS: traZODone 50mg tablet PO SCH (20:03)
[2018-11-07] MEDS: atorvastatin 20mg tablet PO SCH (20:03)
[2018-11-07] MEDS: normal saline 1000ml 1,000 ML IV SCH (20:03)
[2018-11-08] VITALS: BP 115/68
[2018-11-08] MEDS: acetaminophen 325mg tablet PO PRN (01:12)
--- NOTE | 2018-11-08 06:42 | NUR ---
Problems reprioritized. Patient report given, questions answered & plan of care reviewed with Kristie STRICKLAND. Pt awake in bed resting comfortably with no signs of distress.
--- NOTE | 2018-11-08 06:51 | NUR ---
Patient in room BAN 347. I have received report from Cindy STRICKLAND and had the opportunity to ask questions and assume patient care.
[2018-11-08 07:24] VITALS: BP 149/77
[2018-11-08] MEDS: metoprolol tartrate 25mg tablet PO SCH ×2 (08:00→19:46)
[2018-11-08] MEDS: busPIRone 5mg tablet PO SCH ×2 (08:03→19:46)
[2018-11-08] MEDS: CITALOpram 10mg tablet PO SCH (08:03)
[2018-11-08] MEDS: donepezil 5mg tablet PO SCH (08:03)
[2018-11-08] MEDS: apixaban 5mg tablet PO SCH ×2 (08:03→19:46)
[2018-11-08] MEDS: nystatin 15 GM powder TP SCH ×2 (08:05→20:06)
[2018-11-08 11:00] VITALS: BP 167/85
--- NOTE | 2018-11-08 12:46 | NUR ---
MD in to see pt. New order to D/C IV and keep out. D/C'd right PIV canula intact. Pt tolerated well.
[2018-11-08 18:00] VITALS: BP 141/63
--- NOTE | 2018-11-08 18:26 | NUR ---
Problems reprioritized. Patient report given, questions answered & plan of care reviewed with Ivon STRICKLAND.
[2018-11-08] MEDS: atorvastatin 20mg tablet PO SCH (19:45)
[2018-11-08] MEDS: traZODone 50mg tablet PO SCH (19:46)
--- NOTE | 2018-11-08 20:58 | NUR ---
Patient in room BAN 347. I have received report from MARCO A Flowers and had the opportunity to ask questions and assume patient care. Addendum: 11/08/18 at 2058 by Ivon Nieto RN Amended: Links added.
[2018-11-09] VITALS: BP 92/50
--- NOTE | 2018-11-09 06:17 | NUR ---
Problems reprioritized. Patient report given, questions answered & plan of care reviewed with MARCO A Laurent. Addendum: 11/09/18 at 0618 by Ivon Nieto RN Amended: Links added.
[2018-11-09] MEDS: nystatin 15 GM powder TP SCH ×2 (08:00→19:43)
[2018-11-09] MEDS: metoprolol tartrate 25mg tablet PO SCH ×2 (08:00→19:37)
[2018-11-09 08:34] VITALS: BP 116/59
[2018-11-09] MEDS: busPIRone 5mg tablet PO SCH ×2 (08:37→19:42)
[2018-11-09] MEDS: apixaban 5mg tablet PO SCH ×2 (08:37→19:42)
[2018-11-09] MEDS: donepezil 5mg tablet PO SCH (08:37)
[2018-11-09] MEDS: CITALOpram 10mg tablet PO SCH (08:39)
--- NOTE | 2018-11-09 09:51 | NUR ---
SS contacted IHSS & APS via phone to facilitate pt's access to an increase in IHSS service hours and assessment by APS re his need for a payee to manage his finances as they are currently being managed by IHSS worker. SS also contacted [facility]cano to provide a referral for payee services.
--- NOTE | 2018-11-09 10:11 | NUR ---
Ss had t/c with pt's IHSS caregiver, she will pick him up when he's ready for d/c. SS provided caregiver with instructions for accessing an IHSS assessment to increase pt's service hours, and let caregiver know to contact APS to let his APS SW know that pt is home. SS also informed caregiver that pt will be referred to the [facility] for Payee services. Caregiver agreeable to this.
[2018-11-09] MEDS ORDERED: NYSPWD TP (12:00)
[2018-11-09] MEDS ORDERED: METO25TA6 PO (12:00)
[2018-11-09] MEDS ORDERED: DONE5TAB7 PO (12:00)
--- NOTE | 2018-11-09 12:31 | NUR ---
FC d/c at 1220. Removed 5.5 cc from balloon. Catheter exited with no resistance. Patient reported slight discomfort on removal which he indicated was resolved immediately thereafter.
--- NOTE | 2018-11-09 12:39 | NUR ---
Vazquez catheter removed per MD sargent
--- NOTE | 2018-11-09 15:28 | NUR ---
Student documentation: I have reviewed and agree with all interventions, assessments performed and documented by Chandni student nurse.
--- NOTE | 2018-11-09 16:00 | NUR ---
Patient to DC home if urinating after catheter removal. Bladder scanned patient, showed 100mL residual. Dr Johns aware. Will encourage PO intake and continue to monitor. Dr Johns said likely discharge tomorrow when patient is urinating.
--- NOTE | 2018-11-09 18:04 | NUR ---
Problems reprioritized. Patient report given, questions answered & plan of care reviewed with Mitchell RN.
[2018-11-09] MEDS: traZODone 50mg tablet PO SCH (19:42)
[2018-11-09] MEDS: atorvastatin 20mg tablet PO SCH (19:42)
[2018-11-09] MEDS: acetaminophen 325mg tablet PO PRN (19:55)
[2018-11-09 20:00] VITALS: BP 123/65
--- NOTE | 2018-11-09 20:44 | NUR ---
Patient in room BAN 347. I have received report from MARCO A Laurent and had the opportunity to ask questions and assume patient care. Addendum: 11/09/18 at 2044 by Ivon Nieto RN Amended: Links added.
--- NOTE | 2018-11-09 22:17 | NUR ---
pt refused to have bladder scanned at this time. still has not voided since removal of catheter Addendum: 11/09/18 at 2219 by Ivon Nieto RN Amended: Links added.
--- NOTE | 2018-11-09 22:40 | NUR ---
pt refused to be straight cathed. bladder scan showed 615 ml. will continue to monitor
[2018-11-10 00:10] VITALS: BP 110/55
--- NOTE | 2018-11-10 06:11 | NUR ---
Problems reprioritized. Patient report given, questions answered & plan of care reviewed with MARCO A Laurent. Addendum: 11/10/18 at 0612 by Ivon Nieto RN Amended: Links added.
--- NOTE | 2018-11-10 06:38 | NUR ---
Patient in room BAN 347. I have received report from MARCO A PINA and had the opportunity to ask questions and assume patient care.
[2018-11-10] MEDS: apixaban 5mg tablet PO SCH ×2 (07:36→19:57)
[2018-11-10] MEDS: donepezil 5mg tablet PO SCH (07:36)
[2018-11-10] MEDS: busPIRone 5mg tablet PO SCH ×2 (07:36→19:58)
[2018-11-10] MEDS: CITALOpram 10mg tablet PO SCH (07:36)
[2018-11-10] MEDS: nystatin 15 GM powder TP SCH ×2 (07:37→19:58)
[2018-11-10] MEDS: metoprolol tartrate 25mg tablet PO SCH ×2 (07:37→19:56)
[2018-11-10 07:40] VITALS: BP 154/83
[2018-11-10 11:21] VITALS: BP 127/70
--- NOTE | 2018-11-10 11:29 | NUR ---
engineering associate Maida and Philip bladder scanned patient because he was not voiding. Bladder scanning x3 stated he had more than 999 mL urine in his bladder. Palpated bladder area and it felt firm and distended. Patient stated he could not feel the urge to urinate. Informed primary nurse MARCO A Laurent, of findings. Anastasiia contacted hospitalist and talked to lost charge card clerk Mayte. Eventually decision was made to insert a malcolm cath. DILEEP Bey and Philip attempted to insert 16 FR catheter using sterile technique. As student advanced the catheter tubing, it reached a point where she could not advance it any further. I told her to rotate the tubing to see if she could advance it, but it still would not move past that point. After several attempts to advance the tubing, I got sterile gloves on and took over for the student. At first, I also could not advance the line. After further rotating the tubing, I was able to get the remainder of the catheter. At this point, there was no urine coming out, so I inflated the balloon with 10 mL of saline and seated it in the bladder. Maida and Philip moved the patient up in bed, and urine started flowing through the tubing and into the urometer. We emptied Malcolm bag after a few minutes, and recorded 675 mL of urine. Informed Anastasiia of output and wrote it on patient's paper in room.
[2018-11-10] MEDS: acetaminophen 325mg tablet PO PRN (11:40)
--- NOTE | 2018-11-10 14:04 | NUR ---
received p/c from pt's IHSS SW, advocated for an increase in IHSS service hours for pt. IHSS SW will contact caregiver and set up an appointment to re-assess pt for increase of IHSS hours.
--- NOTE | 2018-11-10 18:39 | NUR ---
Problems reprioritized. Patient report given, questions answered & plan of care reviewed with MARCO A Mitchell.
[2018-11-10] MEDS: traZODone 50mg tablet PO SCH (19:57)
[2018-11-10] MEDS: atorvastatin 20mg tablet PO SCH (19:57)
[2018-11-10 20:00] VITALS: BP 137/71
--- NOTE | 2018-11-10 21:07 | NUR ---
Patient in room BAN 347. I have received report from MARCO A Laurent and had the opportunity to ask questions and assume patient care. Addendum: 11/10/18 at 2107 by Ivon Nieto RN Amended: Links added.
[2018-11-11] VITALS: BP 96/48
--- NOTE | 2018-11-11 06:28 | NUR ---
Problems reprioritized. Patient report given, questions answered & plan of care reviewed with MARCO A Steiner. Addendum: 11/11/18 at 0628 by Ivon Nieto RN Amended: Links added.
[2018-11-11 08:00] VITALS: BP 150/63
[2018-11-11] MEDS: metoprolol tartrate 25mg tablet PO SCH ×2 (08:15→19:52)
[2018-11-11] MEDS: apixaban 5mg tablet PO SCH ×2 (08:15→19:50)
[2018-11-11] MEDS: busPIRone 5mg tablet PO SCH ×2 (08:15→19:50)
[2018-11-11] MEDS: donepezil 5mg tablet PO SCH (08:15)
[2018-11-11] MEDS: nystatin 15 GM powder TP SCH ×2 (08:16→19:55)
[2018-11-11] MEDS: CITALOpram 10mg tablet PO SCH (08:16)
[2018-11-11 12:00] VITALS: BP 114/66
--- NOTE | 2018-11-11 17:53 | NUR ---
AWAKE, EATING DINNER
--- NOTE | 2018-11-11 19:03 | NUR ---
Problems reprioritized. Patient report given, questions answered & plan of care reviewed with MARY HERNANDEZ RN.
--- NOTE | 2018-11-11 19:04 | NUR ---
Patient in room BAN 347. I have received report from DIONE STRICKLAND and had the opportunity to ask questions and assume patient care.
[2018-11-11] MEDS: atorvastatin 20mg tablet PO SCH (19:52)
[2018-11-11] MEDS: traZODone 50mg tablet PO SCH (19:52)
[2018-11-11 20:00] VITALS: BP 135/75
[2018-11-12] VITALS: BP 111/52
--- NOTE | 2018-11-12 06:32 | NUR ---
Problems reprioritized. Patient report given, questions answered & plan of care reviewed with DIONE STRICKLAND.
[2018-11-12 07:13] VITALS: BP 145/81
[2018-11-12] MEDS: apixaban 5mg tablet PO SCH ×2 (07:57→20:35)
[2018-11-12] MEDS: CITALOpram 10mg tablet PO SCH (07:57)
[2018-11-12] MEDS: metoprolol tartrate 25mg tablet PO SCH (08:00)
[2018-11-12] MEDS: donepezil 5mg tablet PO SCH (08:04)
[2018-11-12] MEDS: busPIRone 5mg tablet PO SCH ×2 (08:05→20:35)
[2018-11-12] MEDS: nystatin 15 GM powder TP SCH ×2 (08:06→20:38)
--- NOTE | 2018-11-12 08:15 | NUR ---
HR 46 this AM, Dr oH aware. [facility] held.
[2018-11-12 11:22] VITALS: BP 141/76
--- NOTE | 2018-11-12 18:08 | NUR ---
Problems reprioritized. Patient report given, questions answered & plan of care reviewed with Camryn Cowan RN.
--- NOTE | 2018-11-12 18:30 | NUR ---
Patient in room BAN 348. I have received report from DIONE STRICKLAND and had the opportunity to ask questions and assume patient care.
[2018-11-12 20:00] VITALS: BP 116/63
[2018-11-12] MEDS: atorvastatin 20mg tablet PO SCH (20:36)
[2018-11-12] MEDS: traZODone 50mg tablet PO SCH (20:36)
[2018-11-12] MEDS: metoprolol tartrate 12.5mg (1/2 tablet) PO SCH (20:36)
[2018-11-13] VITALS: BP 102/52
--- NOTE | 2018-11-13 06:30 | NUR ---
Problems reprioritized. Patient report given, questions answered & plan of care reviewed with SARAH STRICKLAND.
--- NOTE | 2018-11-13 06:36 | NUR ---
Patient in room BAN 348. I have received report from MARCO A Machado and had the opportunity to ask questions and assume patient care.
[2018-11-13 08:00] VITALS: BP 124/81
[2018-11-13] MEDS: metoprolol tartrate 12.5mg (1/2 tablet) PO SCH (08:00)
[2018-11-13] MEDS: apixaban 5mg tablet PO SCH ×2 (08:21→19:39)
[2018-11-13] MEDS: CITALOpram 10mg tablet PO SCH (08:21)
[2018-11-13] MEDS: busPIRone 5mg tablet PO SCH ×2 (08:21→19:38)
[2018-11-13] MEDS: donepezil 5mg tablet PO SCH (08:21)
[2018-11-13] MEDS: nystatin 15 GM powder TP SCH ×2 (08:22→19:44)
--- NOTE | 2018-11-13 08:47 | NUR ---
Pt HR 56, metorolol held D/T HR being outside of parameters. Dr Ho notified, stated to 'hold metorolol for now, I will look at that patient later.'
[2018-11-13 11:00] VITALS: BP 128/62
--- NOTE | 2018-11-13 12:52 | NUR ---
Discussed malcolm cath with hospitalist, Dr Ho, and he agrees that the catheter needs to stay in D/T retention. Pt chronically retains urine.
[2018-11-13] MEDS: Protein Shake (high protein) 240ml (8oz) cup PO SCH ×2 (13:00→18:00)
--- NOTE | 2018-11-13 13:18 | NUR ---
Reassessment:Pt continues to wait for placement. Pt is with severe dementia resulting in limited appetite. Pt requested a milk shake when he overheard his roommate being offered one. Discussed with dietary waiting to hear back form MD. Pt is bradycardia as of this morning per MD note. PO intake continues to fluctuate between 50-75%, possibly meeting nutrition needs. LBM 11/12. No edema no wounds. Will continue to follow. Recommendations: 1) Continue with regular diet 2) Monitor need for ONS 3) Monitor need for additional bowel care 4) Wt per rx Addendum: 11/13/18 at [address] Amended: Links added.
[2018-11-13 18:00] VITALS: BP 125/62
--- NOTE | 2018-11-13 18:05 | NUR ---
Problems reprioritized. Patient report given, questions answered & plan of care reviewed with MARCO A Koenig.
--- NOTE | 2018-11-13 18:05 | NUR ---
Received report from primary care nurse Emmanuelle STRICKLAND. Assumed patient care. Patient is awake and alert on room air. In no apparent distress. Call light and items of frequent use within reach.
[2018-11-13] MEDS: atorvastatin 20mg tablet PO SCH (19:40)
[2018-11-13] MEDS: traZODone 50mg tablet PO SCH (19:40)
[2018-11-13] MEDS: carVEDilol 3.125mg tablet PO SCH (19:42)
[2018-11-14] VITALS: BP 152/79
[2018-11-14 05:32] LABS: ALANINE AMINOTRANSFERASE 17 U/L (12-78); ALBUMIN 2.6 G/DL (3.4-5.0); ALBUMIN/GLOBULIN RATIO 0.8 (1.1-1.5); ALKALINE PHOSPHATASE 82 IU/L (46-116); ANION GAP 6 (8-16); ASPARTATE AMINO TRANSFERASE 18 U/L (10-37); BILIRUBIN,TOTAL 0.4 MG/DL (0.1-1.0); BLOOD UREA NITROGEN 16 MG/DL (7-18); BUN/CREATININE RATIO 14.8 (5.4-32.0); CALCIUM 8.7 MG/DL (8.5-10.1); CHLORIDE 103 MMOL/L (99-107); CREATININE 1.08 MG/DL (0.60-1.10); GLUCOSE 83 MG/DL (70-104); SODIUM 140 MMOL/L (135-145); TOTAL CARBON DIOXIDE 31.4 MMOL/L (24-32); eGFR 67 ML/MIN
[2018-11-14 05:52] LABS: BASOPHILS % (AUTO) 0.6 % (0-1); EOSINOPHILS # (AUTO) 0.4 X10'3 (0-0.9); EOSINOPHILS % (AUTO) 6.1 % (0-6); HEMOGLOBIN 12.7 g/dl (14.0-17.9); LYMPHOCYTES # (AUTO) 2.5 X10'3 (1.1-4.8); LYMPHOCYTES % (AUTO) 34.2 % (21-51); MEAN CORPUSCULAR HEMOGLOBIN 29.7 PG (27.0-31.0); MEAN CORPUSCULAR HGB CONC 33.4 % (33.0-36.5); MEAN PLATELET VOLUME 8.5 FL (7.4-10.4); MONOCYTES # (AUTO) 0.7 X10'3 (0-0.9); MONOCYTES % (AUTO) 9.2 % (2-12); NEUTROPHILS # (AUTO) 3.7 X10'3 (1.8-7.7); NEUTROPHILS % (AUTO) 49.9 % (42-75); PLATELET COUNT 257 X10'3 (140-440); RED BLOOD COUNT 4.27 X10'6 (4.70-6.10); WHITE BLOOD COUNT 7.4 X10'3 (4.5-11.0)
--- NOTE | 2018-11-14 06:11 | NUR ---
Reported off to Emmanuelle STRICKLAND. Patient is resting with relaxed and unlabored respirations on room air. Call light and items of frequent use within reach.
--- NOTE | 2018-11-14 06:23 | NUR ---
Patient in room BAN 348. I have received report from MARCO A Koenig and had the opportunity to ask questions and assume patient care.
[2018-11-14 07:02] VITALS: BP 123/69
[2018-11-14] MEDS: carVEDilol 3.125mg tablet PO SCH (08:00)
[2018-11-14] MEDS: Protein Shake (high protein) 240ml (8oz) cup PO SCH ×3 (08:00→18:00)
[2018-11-14] MEDS: nystatin 15 GM powder TP SCH ×2 (08:00→19:33)
[2018-11-14] MEDS: busPIRone 5mg tablet PO SCH ×2 (08:44→19:30)
[2018-11-14] MEDS: CITALOpram 10mg tablet PO SCH (08:44)
[2018-11-14] MEDS: donepezil 5mg tablet PO SCH (08:44)
[2018-11-14] MEDS: apixaban 5mg tablet PO SCH ×2 (08:44→19:30)
[2018-11-14 12:14] VITALS: BP 117/67
[2018-11-14 18:00] VITALS: BP 102/60
--- NOTE | 2018-11-14 18:40 | NUR ---
Received report from primary care nurse Emmanuelle STRICKLAND. Assumed patient care. Patient is awake and alert on room air. In no apparent distress. Call light and items of frequent use within reach. Will continue to monitor for changes.
--- NOTE | 2018-11-14 18:42 | NUR ---
Problems reprioritized. Patient report given, questions answered & plan of care reviewed with MARCO A Koenig.
[2018-11-14] MEDS: atorvastatin 20mg tablet PO SCH (19:30)
[2018-11-14] MEDS: traZODone 50mg tablet PO SCH (19:30)
[2018-11-15] VITALS: BP 104/61
--- NOTE | 2018-11-15 06:40 | NUR ---
Patient in room BAN 348. I have received report from Liberty STRICKLAND and had the opportunity to ask questions and assume patient care.
[2018-11-15 07:00] VITALS: BP 133/64
[2018-11-15] MEDS: apixaban 5mg tablet PO SCH ×2 (07:00→21:33)
[2018-11-15] MEDS: nystatin 15 GM powder TP SCH ×2 (07:00→21:34)
[2018-11-15] MEDS: CITALOpram 10mg tablet PO SCH (07:01)
[2018-11-15] MEDS: donepezil 5mg tablet PO SCH (07:01)
[2018-11-15] MEDS: busPIRone 5mg tablet PO SCH ×2 (07:01→21:32)
[2018-11-15] MEDS: Protein Shake (high protein) 240ml (8oz) cup PO SCH ×3 (08:00→18:00)
[2018-11-15 12:00] VITALS: BP 120/60
--- NOTE | 2018-11-15 18:45 | NUR ---
Patient in room BAN 348. I have received report from Ja STRICKLAND and had the opportunity to ask questions and assume patient care. Patient resting in bed, states he is finished eat, will continue to monitor.
[2018-11-15 19:00] VITALS: BP 109/78
--- NOTE | 2018-11-15 19:02 | NUR ---
Problems reprioritized. Patient report given, questions answered & plan of care reviewed with Katie STRICKLAND.
[2018-11-15] MEDS: traZODone 50mg tablet PO SCH (21:33)
[2018-11-15] MEDS: atorvastatin 20mg tablet PO SCH (21:33)
[2018-11-15] MEDS: acetaminophen 325mg tablet PO PRN (21:35)
[2018-11-16 02:11] VITALS: BP 118/79
[2018-11-16] MEDS: acetaminophen 325mg tablet PO PRN ×2 (06:13→16:04)
--- NOTE | 2018-11-16 06:30 | NUR ---
Patient in room BAN 348. I have received report from YAYA STRICKLAND and had the opportunity to ask questions and assume patient care.
--- NOTE | 2018-11-16 06:53 | NUR ---
Problems reprioritized. Patient report given, questions answered & plan of care reviewed with Katie STRICKLAND. Patient resting in bed respirations even.
[2018-11-16 07:00] VITALS: BP 113/59
[2018-11-16] MEDS: Protein Shake (high protein) 240ml (8oz) cup PO SCH ×3 (08:00→18:00)
[2018-11-16] MEDS: busPIRone 5mg tablet PO SCH ×2 (08:37→20:40)
[2018-11-16] MEDS: CITALOpram 10mg tablet PO SCH (08:37)
[2018-11-16] MEDS: donepezil 5mg tablet PO SCH (08:37)
[2018-11-16] MEDS: apixaban 5mg tablet PO SCH ×2 (08:37→20:41)
[2018-11-16] MEDS: nystatin 15 GM powder TP SCH ×2 (08:39→20:42)
[2018-11-16 11:28] VITALS: BP 119/75
--- NOTE | 2018-11-16 12:04 | NUR ---
Reassessment: Pt stable however remains bradycardic per MD notes. Documented PO intake fluctuates with recent average 50%, receiving ONS. LBM 11/14. Pt continues awaiting placement. Will continue to follow. Reassessment:Pt continues to wait for placement. Pt is with severe dementia resulting in limited appetite. Pt requested a milk shake when he overheard his roommate being offered one. Discussed with dietary waiting to hear back form MD. Pt is bradycardia as of this morning per MD note. PO intake continues to fluctuate between 50-75%, possibly meeting nutrition needs. LBM 11/12. No edema no wounds. Will continue to follow. Recommendations: 1) Continue with regular diet 2) Monitor need for ONS 3) Monitor need for additional bowel care 4) Wt per rx Addendum: 11/16/18 at [address] Amended: Links added.
--- NOTE | 2018-11-16 18:10 | NUR ---
Patient in room BAN 348. I have received report from Katie STRICKLAND and had the opportunity to ask questions and assume patient care. Patient finished with dinner and requested it removed. Will continue to monitor.
--- NOTE | 2018-11-16 18:16 | NUR ---
Problems reprioritized. Patient report given, questions answered & plan of care reviewed with YAYA STRICKLAND.
[2018-11-16 19:16] VITALS: BP 113/68
[2018-11-16] MEDS ORDERED: carVEDilol 3.125mg tablet PO SCH (20:00)
[2018-11-16] MEDS: atorvastatin 20mg tablet PO SCH (20:41)
[2018-11-16] MEDS: traZODone 50mg tablet PO SCH (20:41)
[2018-11-17] VITALS: BP 125/57
--- NOTE | 2018-11-17 06:30 | NUR ---
Problems reprioritized. Patient report given, questions answered & plan of care reviewed with Edelmira STRICKLAND. Patient resting eyes closed respirations even.]
--- NOTE | 2018-11-17 07:34 | NUR ---
I have received report from Yesi STRCIKLAND and had the opportunity to ask questions and assume patient care.
[2018-11-17 07:40] VITALS: BP 120/69
[2018-11-17] MEDS: Protein Shake (high protein) 240ml (8oz) cup PO SCH ×3 (08:00→18:03)
[2018-11-17] MEDS: CITALOpram 10mg tablet PO SCH (08:27)
[2018-11-17] MEDS: apixaban 5mg tablet PO SCH ×2 (08:27→20:17)
[2018-11-17] MEDS: donepezil 5mg tablet PO SCH (08:27)
[2018-11-17] MEDS: busPIRone 5mg tablet PO SCH ×2 (08:28→20:17)
[2018-11-17] MEDS: nystatin 15 GM powder TP SCH ×2 (08:28→20:18)
--- NOTE | 2018-11-17 08:30 | NUR ---
Protein shakes not charted on by other shifts. Resolved by this RN to keep current on future administrations.
[2018-11-17 11:11] VITALS: BP 127/77
--- NOTE | 2018-11-17 17:59 | NUR ---
Report given to NOC shift.
[2018-11-17 20:00] VITALS: BP 120/64
[2018-11-17] MEDS: traZODone 50mg tablet PO SCH (20:17)
[2018-11-17] MEDS: atorvastatin 20mg tablet PO SCH (20:17)
[2018-11-17] MEDS: acetaminophen 325mg tablet PO PRN (20:20)
--- NOTE | 2018-11-17 21:11 | NUR ---
Patient in room [facility] 348. I have received report from MARCO A Hickey and had the opportunity to ask questions and assume patient care. Addendum: 11/17/18 at 2112 by Ivon Nieto RN Amended: Links added.
[2018-11-17 23:00] VITALS: BP 108/56
--- NOTE | 2018-11-18 04:39 | NUR ---
malcolm care done with malcolm wipes
--- NOTE | 2018-11-18 06:10 | NUR ---
Problems reprioritized. Patient report given, questions answered & plan of care reviewed with MARCO A Hickey. Addendum: 11/18/18 at 0611 by Ivon Nieto RN Amended: Links added.
--- NOTE | 2018-11-18 06:19 | NUR ---
I have received report from Ivon STRICKLAND and had the opportunity to ask questions and assume patient care.
[2018-11-18] MEDS: Protein Shake (high protein) 240ml (8oz) cup PO SCH ×3 (08:00→18:00)
[2018-11-18] MEDS: donepezil 5mg tablet PO SCH (08:27)
[2018-11-18] MEDS: apixaban 5mg tablet PO SCH ×2 (08:27→20:10)
[2018-11-18] MEDS: busPIRone 5mg tablet PO SCH ×2 (08:27→20:10)
[2018-11-18] MEDS: CITALOpram 10mg tablet PO SCH (08:27)
[2018-11-18] MEDS: nystatin 15 GM powder TP SCH ×2 (08:28→20:10)
--- NOTE | 2018-11-18 08:29 | NUR ---
Protein shake not received, pt refuses to order another do to not being hungry
[2018-11-18 08:51] VITALS: BP 136/74
[2018-11-18 11:41] VITALS: BP 132/72
--- NOTE | 2018-11-18 17:38 | NUR ---
Pt. stefan cortez change Addendum: 11/18/18 at 1740 by Mariah Valencia RN Amended: Links added.
[2018-11-18 20:00] VITALS: BP 104/59
[2018-11-18] MEDS: traZODone 50mg tablet PO SCH (20:10)
[2018-11-18] MEDS: atorvastatin 20mg tablet PO SCH (20:10)
[2018-11-18] MEDS: acetaminophen 325mg tablet PO PRN (20:10)
--- NOTE | 2018-11-18 22:25 | NUR ---
Patient in room BAN 348. I have received report from MARCO A Hickey and had the opportunity to ask questions and assume patient care. Addendum: 11/18/18 at 2226 by Ivon Nieto RN Amended: Links added.
[2018-11-19 00:20] VITALS: BP 113/63
--- NOTE | 2018-11-19 06:28 | NUR ---
Problems reprioritized. Patient report given, questions answered & plan of care reviewed with MARCO A Chavez. Addendum: 11/19/18 at 0629 by Ivon Nieto RN Amended: Links added.
--- NOTE | 2018-11-19 06:44 | NUR ---
Patient in room BAN 348. I have received report from MARCO A Del Valle and had the opportunity to ask questions and assume patient care.
[2018-11-19] MEDS: Protein Shake (high protein) 240ml (8oz) cup PO SCH ×3 (08:00→18:16)
[2018-11-19] MEDS: busPIRone 5mg tablet PO SCH ×2 (08:36→19:54)
[2018-11-19] MEDS: nystatin 15 GM powder TP SCH ×2 (08:36→19:56)
[2018-11-19] MEDS: donepezil 5mg tablet PO SCH (08:36)
[2018-11-19] MEDS: CITALOpram 10mg tablet PO SCH (08:36)
[2018-11-19] MEDS: apixaban 5mg tablet PO SCH ×2 (08:36→19:54)
[2018-11-19] MEDS: acetaminophen 325mg tablet PO PRN ×2 (08:39→20:13)
[2018-11-19 11:00] VITALS: BP 137/70
--- NOTE | 2018-11-19 13:47 | NUR ---
SS contacted both [facility] & [facility] to f/u on referrals made on pt's behalf. Per consultation- both agencies had declined to open cases for pt.
[2018-11-19 18:00] VITALS: BP 122/66
--- NOTE | 2018-11-19 18:25 | NUR ---
Problems reprioritized. Patient report given, questions answered & plan of care reviewed with MARCO A White.
--- NOTE | 2018-11-19 18:28 | NUR ---
Patient in room [facility]AN 348. I have received report from Kathy STRICKLAND and had the opportunity to ask questions and assume patient care. Pt sitting up in bed eating dinner. No signs of distress. Will continue to monitor.
[2018-11-19] MEDS: atorvastatin 20mg tablet PO SCH (19:54)
[2018-11-19] MEDS: traZODone 50mg tablet PO SCH (19:54)
[2018-11-20] VITALS: BP 104/58
--- NOTE | 2018-11-20 06:24 | NUR ---
Problems reprioritized. Patient report given, questions answered & plan of care reviewed with Kathy STRICKLAND.
--- NOTE | 2018-11-20 06:26 | NUR ---
Patient in room [facility]AN 348. I have received report from Garcia White and had the opportunity to ask questions and assume patient care.
[2018-11-20 07:00] VITALS: BP 160/86
[2018-11-20] MEDS: Protein Shake (high protein) 240ml (8oz) cup PO SCH (08:00)
[2018-11-20] MEDS: CITALOpram 10mg tablet PO SCH (08:16)
[2018-11-20] MEDS: busPIRone 5mg tablet PO SCH (08:16)
[2018-11-20] MEDS: donepezil 5mg tablet PO SCH (08:16)
[2018-11-20] MEDS: apixaban 5mg tablet PO SCH (08:19)
[2018-11-20] MEDS: nystatin 15 GM powder TP SCH (08:20)
--- NOTE | 2018-11-20 10:17 | NUR ---
Consultation w/CM- Pt's been accepted @ a placement in [place]. SS contacted caregiver via phone, left vm asking that she brings in pt's bank card/debit card and clothes for him to prepare for transition.
[2018-11-20 11:00] VITALS: BP 137/62
--- NOTE | 2018-11-20 13:31 | NUR ---
Pt tx to shelter care facility via [facility] who arrived 30 min early. No DC photo taken, but redness has resolved from contact dermatitis previously photographed. Report called to receiving facility. Pt has FC present on transfer.
--- NOTE | 2018-11-20 14:05 | NUR ---
Pt d/c'd to [facility] in [place], referral closed.
== END 2018-11-20 13:29 | DRG 641 ==
LOC: ER 11:40 → ED HOLD 15:00 → CMPBEDREQ 19:44 → SUR 3N 19:45
PROVIDERS: ADMIT Internal Medicine; ATTEND Hospitalist
DX: R62.7 Adult failure to thrive (principal); F03.91 Unspecified dementia, unspecified severity, with behavioral disturbance; L97.111 Non-pressure chronic ulcer of right thigh limited to breakdown of skin; I10 Essential (primary) hypertension; R32 Unspecified urinary incontinence; N48.5 Ulcer of penis; E78.5 Hyperlipidemia, unspecified; I48.2 Chronic atrial fibrillation; F17.200 Nicotine dependence, unspecified, uncomplicated; Z60.2 Problems related to living alone; F32.9 Major depressive disorder, single episode, unspecified; R00.1 Bradycardia, unspecified; R15.9 Full incontinence of feces; R21 Rash and other nonspecific skin eruption; R33.9 Retention of urine, unspecified; Z88.0 Allergy status to penicillin; Z79.899 Other long term (current) drug therapy; Z79.01 Long term (current) use of anticoagulants; Z86.718 Personal history of other venous thrombosis and embolism; Z75.1 Person awaiting admission to adequate facility elsewhere
CPT/HCPCS: 36415; 51702; 70450; 71045; 80048; 80053; 81001; 82607; 84132; 84443; 85025; 87070; 93005; 97110; 97116; 97162; 97530; 99285; G0378; J2270; J7030